=== PATIENT | female | born 1935 | race Asian ===

== ENCOUNTER 2019-12-26 19:28 | Emergency (ER) | payer MEDICARE, OTHER ==
[~2019-12-26] VITALS: Ht 157.5 cm; Wt 60.9 kg
[~2019-12-26 19:28] MED LIST: ATOR20TA86 PO; ESOM20CA31 PO; NAPR250T4 PO
[2019-12-26] MEDS ORDERED: ACETAMINOPHEN 325 MG TABLET PO ONE (20:00)
[2019-12-26 21:00] VITALS: BP 169/93
[2019-12-27 12:01] LABS: GLUCOSE,POINT OF CARE 131 MG/DL (70-110)
== END 2019-12-26 21:37 | disposition home or self-care (01) ==
LOC: EMS 19:28
DX: S00.83XA Contusion of other part of head, initial encounter (principal); M54.2 Cervicalgia; I10 Essential (primary) hypertension; E11.9 Type 2 diabetes mellitus without complications; E78.00 Pure hypercholesterolemia, unspecified; W01.0XXA Fall on same level from slipping, tripping and stumbling without subsequent striking against object, initial encounter; Y93.89 Activity, other specified; Y92.89 Other specified places as the place of occurrence of the external cause; Y99.8 Other external cause status
CPT/HCPCS: 70450; 72125